=== PATIENT | female | born 1950 | race Caucasian/White ===

== ENCOUNTER 2018-01-04 05:51 | Day surgery (SDC) | payer MEDICARE, OTHER ==
[2018-01-04] MEDS ORDERED: DIPRIVAN 200 MG/20 ML IV ONE (05:52)
[2018-01-04] MEDS ORDERED: Ketamine HCl 50 MG/ML IV ONE (05:52)
[2018-01-04] MEDS ORDERED: Lactated Ringers 1,000 ML IV SCH (06:00)
[2018-01-04 08:37] VITALS: PULSE 63
[2018-01-04 08:58] VITALS: BP 139/80; O2SAT 96
--- NOTE | 2018-01-04 11:35 | OP ---
SURGERY DATE/TIME: 01/04/2018 0735 PREOPERATIVE DIAGNOSIS: Dysphagia. POSTOPERATIVE DIAGNOSIS: Reactive gastropathy otherwise normal exam. PROCEDURE: Esophagogastroduodenoscopy with biopsy. SURGEON: Dr. Gregory. ANESTHESIA: Medications were given by the anesthesia department. BRIEF HISTORY: The patient is a 67 year old white female who reports she has been having troubles with her pills sticking in her throat. She reports that she does have some mild difficulties with swallowing solids but flushes it down with water just fine. The patient was felt the need to have endoscopic evaluation to rule out stricture. The patient was appraised of the risks of the procedure including the risk of perforation, phlebitis, untoward reaction to medication, bleeding and missed lesions. The patient verbalized her understanding and desired to have the procedure performed. DESCRIPTION OF PROCEDURE: The patient was given the medications by the anesthesia department. She had continuous pulse oximetry, ECG monitoring, intermittent blood pressure monitoring and tidal CO2 monitoring during the examination. She was placed in the left lateral decubitus position. A bite block was placed and the flexible Olympus gastroscope was used to intubate the oropharynx. The scope was easily introduced into the esophagus which appeared to be normal throughout its length. No evidence of stricture was noted. The stomach was entered where normal gastric rugal folds were seen and these distended nicely with insufflation of air. The scope was passed along the greater curvature of the stomach to the antrum. There appeared to be appearance of a reactive gastropathy. No erosions or ulcerations were noted. The pylorus was encountered and intubated. The duodenum inspected and found to be normal. The scope is then withdrawn towards the stomach. A retroflex view was obtained of the lesser curvature, fundus and cardia regions of the stomach. The scope was then redirected towards the gastric antrum and biopsies were obtained to confirm the presence of reactive gastropathy and rule out the presence of Helicobacter pylori-type organisms. The scope was then removed from the patient who tolerated the procedure well and was sent back to [facility] good condition.
== END 2018-01-04 09:10 | disposition home or self-care (01) ==
LOC: SDC 05:51
PROVIDERS: ATTEND Family Medicine
DX: K31.9 Disease of stomach and duodenum, unspecified (principal)
CPT/HCPCS: 88305; J2704